=== PATIENT | female | born 1965 | race Caucasian/White ===

== ENCOUNTER → 2020-01-08 10:46 | Outpatient (CLI) | payer OTHER, SELFPAY ==
--- NOTE | 2020-01-08 10:47 | DI.RAD.S_ITS ---
PROCEDURE: XR SHOULDER LT MIN 2V INDICATIONS: l shoulder pain TECHNIQUE: 3 views of the shoulder were acquired. COMPARISON: None. FINDINGS: Bones: No fractures or dislocations but there is mild to moderate a.c. joint osteoarthritis. No suspicious bony lesions. Visualized ribs appear intact. Soft tissues: No suspicious soft tissue calcifications. IMPRESSION: Mild to moderate a.c. joint osteoarthritis, no trauma found. Dictated by: Jonny Ureña M.D. on 01/08/2020 at 11:02 Approved by: Jonny Ureña M.D. on 01/08/2020 at 11:02
== END ==
PROVIDERS: Referring Provider Physician Assistant; Visit Provider Physician Assistant
DX: S46.912A Strain of unspecified muscle, fascia and tendon at shoulder and upper arm level, left arm, initial encounter (principal); M25.512 Pain in left shoulder; M19.012 Primary osteoarthritis, left shoulder; X58.XXXA Exposure to other specified factors, initial encounter
CPT/HCPCS: 73030